=== PATIENT | female | born 1985 ===

== ENCOUNTER 2016-11-02 19:47 | Emergency (ER) | payer SELFPAY ==
[2016-11-02 20:06] VITALS: BP 154/61; PULSE 78; RESP 16; TEMP 98.1; O2SAT 100
--- NOTE | 2016-11-02 21:03 | ED PDOC ---
HPI: General Adult Time Seen by Provider: 11/02/16 19:48 Chief Complaint (Nursing): Eye Problem Chief Complaint (Provider): Eye Problem History Per: Patient History/Exam Limitations: no limitations Onset/Duration Of Symptoms: Hrs Current Symptoms Are (Timing): Still Present Additional Complaint(s): 31 y/o female presents to the emergency department with a complaint of swelling to the left lower lid of the eye since last week. Associated with rashes located on the left side of the face, right arm and elbow that began after eating seafood earlier today. Denies any further medical complaints. Past Medical History Reviewed: Historical Data, Nursing Documentation, Vital Signs Vital Signs: Last Vital Signs Temp 98.1 F 11/02/16 20:03 Pulse 78 11/02/16 20:03 Resp 16 11/02/16 20:03 BP 154/61 H 11/02/16 20:03 Pulse Ox 100 11/02/16 21:11 - Medical History PMH: No Chronic Diseases - Surgical History Surgical History: No Surg Hx - Family History Family History: States: Unknown Family Hx - Home Medications Home Medications: Ambulatory Orders Medication Instructions Recorded Naproxen [Naprosyn] 500 mg PO Q12H #20 tab 11/14/15 Albuterol HFA [Ventolin HFA 90 2 puff IH Q4 PRN #1 unit 06/28/16 mcg/actuation (8 g)] Ibuprofen [Motrin] 600 mg PO TID PRN #30 tab 06/28/16 Oseltamivir Phosphate [Tamiflu] 75 mg PO BID #9 capsule 06/28/16 Promethazine HCl/Codeine 5 ml PO TID PRN #50 syrup 06/28/16 [Prometh-Codein 6.25-10 mg/5 ml] Polymyxin/Trimethoprim Sulfate 1 drop XX Q6H 10 Days 11/02/16 [Polytrim Ophth Soln] - Allergies Allergies/Adverse Reactions: Allergies Allergy/AdvReac Type Severity Reaction Status Date / Time No Known Allergies Allergy Verified 11/14/15 10:33 Review of Systems ROS Statement: Except As Marked, All Systems Reviewed And Found Negative Eyes: Positive for: Pain (Left with swelling of the lower lid) Skin: Positive for: Rash Physical Exam - Reviewed Nursing Documentation Reviewed: Yes Vital Signs Reviewed: Yes - Physical Exam Appears: Positive for: Non-toxic, No Acute Distress Head Exam: Positive for: ATRAUMATIC, NORMOCEPHALIC Skin: Positive for: Warm, Dry, Rash (Erythematous papules consistent with insect bites on the left cheek, right hand, and elbow. ) Eye Exam: Positive for: EOMI, PERRL, Other (Small amount of white discharge to the left lower eyelid with stye. ). Negative for: Normal appearance (No corneal abrasion) Neurologic/Psych: Positive for: Alert, Oriented - ECG O2 Sat by Pulse Oximetry: 100 (RA) Pulse Ox Interpretation: Normal Medical Decision Making Medical Decision Making: Time: 19:48 Initial Impression: Left eye pain Initial Plan: --Benadryl 50 mg PO --Revaluation Time: 21:00 --Patient advised to apply warm compresses for healing of the stye located on the left eye. Upon provider reevaluation patient is medically stable, and requires no further treatment in the ED at this time. Patient will be discharged home with Rx for Polytrim Ophth Soln . Counseling was provided and all questions were answered regarding diagnosis and need for follow up with PMD. There is agreement to discharge plan. Return if symptoms persist or worsen. Clinical Impression: Conjunctivitis Scribe Attestation: Documented by Karolina Davis, acting as a scribe for Rosaline Brewster PA-C. Provider Scribe Attestation: All medical record entries made by the Scribe were at my direction and personally dictated by me. I have reviewed the chart and agree that the record accurately reflects my personal performance of the history, physical exam, medical decision making, and the department course for this patient. I have also personally directed, reviewed, and agree with the discharge instructions and disposition. Disposition - Clinical Impression Clinical Impression: Conjunctivitis - Patient ED Disposition Is Patient to be Admitted: No Counseled Patient/Family Regarding: Diagnosis, Rx Given - Disposition Disposition: Routine/Home Disposition Time: 21:00 Condition: STABLE Prescriptions: Polymyxin/Trimethoprim Sulfate [Polytrim Ophth Soln] 1 drop XX Q6H 10 Days Instructions: Conjunctivitis (ED)
== END 2016-11-02 21:40 | disposition home or self-care (01) ==
LOC: H.ER 19:47
DX: H10.9 Unspecified conjunctivitis (principal)

== ENCOUNTER 2017-03-04 19:27 | Emergency (ER) | payer OTHER ==
[2017-03-04 19:58] VITALS: BP 126/77; PULSE 87; RESP 16; TEMP 98.7; O2SAT 100
--- NOTE | 2017-03-04 20:28 | ED PDOC ---
HPI: Female Pain Time Seen by Provider: 03/04/17 20:00 Chief Complaint (Nursing): Abdominal Pain Chief Complaint (Provider): Abdominal Pain History Per: Patient History/Exam Limitations: no limitations Onset/Duration Of Symptoms: Days (x1) Current Symptoms Are (Timing): Still Present Additional Complaint(s): Michelle Polk is a 32 year old female who presents to the emergency department with a complaint of dysuria associated with suprapubic pain radiating intermittently to bilateral flank, hematuria and chills ongoing for 1 day. Denied any fever or vomiting. PMD: none provided Past Medical History Reviewed: Historical Data, Nursing Documentation, Vital Signs Vital Signs: Last Vital Signs Temp 98.7 F 03/04/17 19:54 Pulse 87 03/04/17 19:54 Resp 16 03/04/17 19:54 BP 126/77 03/04/17 19:54 Pulse Ox 100 03/04/17 19:54 - Family History Family History: States: Unknown Family Hx - Home Medications Home Medications: Ambulatory Orders Medication Instructions Recorded Naproxen [Naprosyn] 500 mg PO Q12H #20 tab 11/14/15 Albuterol HFA [Ventolin HFA 90 2 puff IH Q4 PRN #1 unit 06/28/16 mcg/actuation (8 g)] Ibuprofen [Motrin] 600 mg PO TID PRN #30 tab 06/28/16 Oseltamivir Phosphate [Tamiflu] 75 mg PO BID #9 capsule 06/28/16 Promethazine HCl/Codeine 5 ml PO TID PRN #50 syrup 06/28/16 [Prometh-Codein 6.25-10 mg/5 ml] Polymyxin/Trimethoprim Sulfate 1 drop XX Q6H 10 Days bottle 11/02/16 [Polytrim Ophth Soln] Ciprofloxacin [Cipro] 500 mg PO BID 7 Days tab 03/04/17 Phenazopyridine [Pyridium] 200 mg PO TID 2 Days tab 03/04/17 - Allergies Allergies/Adverse Reactions: Allergies Allergy/AdvReac Type Severity Reaction Status Date / Time seafood Allergy RASH Uncoded 03/04/17 19:54 Review of Systems ROS Statement: Except As Marked, All Systems Reviewed And Found Negative Constitutional: Positive for: Chills. Negative for: Fever Gastrointestinal: Positive for: Abdominal Pain (suprapubic). Negative for: Vomiting Genitourinary Female: Positive for: Dysuria, Hematuria Musculoskeletal: Positive for: Back Pain (bilateral flank intermittently) Physical Exam - Reviewed Nursing Documentation Reviewed: Yes Vital Signs Reviewed: Yes - Physical Exam Appears: Positive for: Well, Non-toxic, No Acute Distress Head Exam: Positive for: ATRAUMATIC, NORMAL INSPECTION, NORMOCEPHALIC Skin: Positive for: Normal Color Eye Exam: Positive for: Normal appearance ENT: Positive for: Normal ENT Inspection Neck: Positive for: Normal Cardiovascular/Chest: Positive for: Regular Rate, Rhythm. Negative for: Chest Non Tender Respiratory: Positive for: Normal Breath Sounds, Accessory Muscle Use. Negative for: Decreased Breath Sounds, Respiratory Distress Gastrointestinal/Abdominal: Positive for: Soft, Tenderness (suprapubic). Negative for: Normal Exam, Mass Back: Positive for: Normal Inspection. Negative for: L CVA Tenderness, R CVA Tenderness, Vertebral Tenderness Extremity: Positive for: Normal ROM. Negative for: Tenderness, Pedal Edema, Deformity Neurologic/Psych: Positive for: Alert, Oriented - ECG O2 Sat by Pulse Oximetry: 100 (RA) Pulse Ox Interpretation: Normal Medical Decision Making Medical Decision Making: Initial Impression: UTI Initial Plan: * Urine * Urine dpistick * Toradol 30mg IM * Urine culture * Urinalysis Scribe Attestation: Documented by Nabila Concepcion, acting as a scribe for Naveed Dash MD. Provider Scribe Attestation: All medical record entries made by the Scribe were at my direction and personally dictated by me. I have reviewed the chart and agree that the record accurately reflects my personal performance of the history, physical exam, medical decision making, and the department course for this patient. I have also personally directed, reviewed, and agree with the discharge instructions and disposition. Disposition - Clinical Impression Clinical Impression: UTI (urinary tract infection) - Disposition Referrals: [facility] [Outside] Disposition Time: 20:30 Condition: STABLE Prescriptions: Ciprofloxacin [Cipro] 500 mg PO BID 7 Days tab Phenazopyridine [Pyridium] 200 mg PO TID 2 Days tab Instructions: Urinary Tract Infection in Women (DC) Forms: [facility] (Dominican) Print Language: KOREAN
[2017-03-04 21:05] LABS: RBC URINE 458 /hpf (0-3); URINE BACTERIA OCC (<OCC); URINE BILIRUBIN NEGATIVE (NEGATIVE); URINE BLOOD LARGE (NEGATIVE); URINE COLOR YELLOW (YELLOW); URINE GLUCOSE (UA) NEG (Normal); URINE KETONE NEGATIVE (NEGATIVE); URINE LEUKOCYTE ESTERASE LARGE Leu/uL (Negative); URINE PROTEIN 100 mg/dL (NEGATIVE); URINE UROBILINOGEN 0.2-1.0 mg/dL (0.2-1.0); WBC URINE 150 /hpf (0-5)
== END 2017-03-04 21:24 | disposition home or self-care (01) ==
LOC: H.ER 19:27
DX: N39.0 Urinary tract infection, site not specified (principal)
CPT/HCPCS: 81003; 87086; 96372; 99282; J1885

== ENCOUNTER 2018-01-06 15:12 | Emergency (ER) | payer OTHER ==
[2018-01-06 15:22] VITALS: BP 113/75; PULSE 88; RESP 16; TEMP 98.6; O2SAT 99
--- NOTE | 2018-01-06 16:21 | ED PDOC ---
HPI: General Adult Time Seen by Provider: 01/06/18 15:34 Chief Complaint (Nursing): Abdominal Pain Chief Complaint (Provider): Mass History Per: Patient History/Exam Limitations: no limitations Onset/Duration Of Symptoms: Other (x2 years, worse since x few months) Current Symptoms Are (Timing): Still Present Additional Complaint(s): 32 year old female presents to the ED for evaluation of a mass over her left rib cage. Patient reports she initially noticed it two years ago, but since losing weight over the last few months, it was become more prominent. Otherwise , she denies redness, drainage from the site, and pain to the area. PMD: none provided Past Medical History Reviewed: Historical Data, Nursing Documentation, Vital Signs Vital Signs: Last Vital Signs Temp 98.6 F 01/06/18 15:18 Pulse 88 01/06/18 15:18 Resp 16 01/06/18 15:18 BP 113/75 01/06/18 15:18 Pulse Ox 99 01/06/18 16:24 - Medical History PMH: No Chronic Diseases - Surgical History Surgical History: No Surg Hx - Family History Family History: States: Unknown Family Hx - Social History Current smoker - smoking cessation education provided: No Alcohol: None Drugs: Denies - Home Medications Home Medications: Ambulatory Orders Medication Instructions Recorded Naproxen [Naprosyn] 500 mg PO Q12H #20 tab 11/14/15 Albuterol HFA [Ventolin HFA 90 2 puff IH Q4 PRN #1 unit 06/28/16 mcg/actuation (8 g)] Ibuprofen [Motrin] 600 mg PO TID PRN #30 tab 06/28/16 Oseltamivir Phosphate [Tamiflu] 75 mg PO BID #9 capsule 06/28/16 Promethazine HCl/Codeine 5 ml PO TID PRN #50 syrup 06/28/16 [Prometh-Codein 6.25-10 mg/5 ml] Polymyxin/Trimethoprim Sulfate 1 drop XX Q6H 10 Days bottle 11/02/16 [Polytrim Ophth Soln] Ciprofloxacin [Cipro] 500 mg PO BID 7 Days tab 03/04/17 Phenazopyridine [Pyridium] 200 mg PO TID 2 Days tab 03/04/17 - Allergies Allergies/Adverse Reactions: Allergies Allergy/AdvReac Type Severity Reaction Status Date / Time seafood Allergy RASH Uncoded 03/04/17 19:54 Review of Systems ROS Statement: Except As Marked, All Systems Reviewed And Found Negative Gastrointestinal: Positive for: Other (mass to left rib cage, no redness drainage or pain) Physical Exam - Reviewed Nursing Documentation Reviewed: Yes Vital Signs Reviewed: Yes - Physical Exam Appears: Positive for: No Acute Distress Head Exam: Positive for: ATRAUMATIC, NORMOCEPHALIC Skin: Positive for: Normal Color, Warm, Dry Eye Exam: Positive for: Normal appearance ENT: Positive for: Normal ENT Inspection Neck: Positive for: Normal, Painless ROM, Supple Cardiovascular/Chest: Positive for: Regular Rate, Rhythm Respiratory: Positive for: Normal Breath Sounds. Negative for: Accessory Muscle Use, Respiratory Distress Gastrointestinal/Abdominal: Positive for: Normal Exam, Soft. Negative for: Tenderness (over left lateral ribs), Mass, Other (edema) Back: Positive for: Normal Inspection. Negative for: L CVA Tenderness Extremity: Positive for: Normal ROM Neurologic/Psych: Positive for: Alert, Oriented (x3). Negative for: Motor/ Sensory Deficits - ECG O2 Sat by Pulse Oximetry: 99 (RA) Pulse Ox Interpretation: Normal Medical Decision Making Medical Decision Making: Time: 1559 Initial Impression: lipoma Initial Plan: --XR left ribs XR: NAd, as read by NORBERT Scribe Attestation: Documented by Vianey Marti, acting as a scribe for Cordelia Mckinney PA-C. Provider Scribe Attestation: All medical record entries made by the Scribe were at my direction and personally dictated by me. I have reviewed the chart and agree that the record accurately reflects my personal performance of the history, physical exam, medical decision making, and the department course for this patient. I have also personally directed, reviewed, and agree with the discharge instructions and disposition. Disposition - Clinical Impression Clinical Impression: Lipoma - Patient ED Disposition Is Patient to be Admitted: No - Disposition Referrals: Maximiliano Salmeron MD [Medical Doctor] - Disposition: Routine/Home Disposition Time: 20:23 Condition: STABLE Instructions: Lipoma Forms: [facility] (Ukrainian), [facility] ED School/Work Excuse
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
== END 2018-01-06 18:22 | disposition home or self-care (01) ==
LOC: H.ER 15:12
DX: D17.79 Benign lipomatous neoplasm of other sites (principal)

== ENCOUNTER 2018-04-18 03:39 | Emergency (ER) | payer OTHER ==
[2018-04-18 04:00] VITALS: RESP 18; O2SAT 98
[2018-04-18] MEDS ORDERED: Tdap Vaccine 0.5 ml Vial (10-64 yrs) IM ONE (04:08)
[2018-04-18] MEDS ORDERED: Amoxicillin-Clav 875-125 mg Tab PO ONE ×2 (04:33→04:34)
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
[2018-04-18] MEDS ORDERED: Bacitracin 500 Units/gm Oint Foilpak UD TOP ONE (05:02)
[2018-04-18 05:24] VITALS: BP 125/73; PULSE 89; TEMP 98.5
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
== END 2018-04-18 05:20 | disposition home or self-care (01) ==
LOC: H.ER 03:39
DX: S61.001A Unspecified open wound of right thumb without damage to nail, initial encounter (principal); S05.11XA Contusion of eyeball and orbital tissues, right eye, initial encounter; Y04.1XXA Assault by human bite, initial encounter; Y04.0XXA Assault by unarmed brawl or fight, initial encounter; Y92.89 Other specified places as the place of occurrence of the external cause

== ENCOUNTER 2018-04-19 11:25 | Emergency (ER) | payer OTHER ==
[2018-04-19 11:30] VITALS: BMI 25.4
[2018-04-19 11:35] VITALS: BP 128/89; PULSE 83; RESP 18; TEMP 97.8; O2SAT 100
[2018-04-19] MEDS ORDERED: Amoxicillin-Clav 875-125 mg Tab PO STA (12:55)
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
[2018-04-19] MEDS ORDERED: Naproxen 500 MG TAB PO ONE (13:38)
[2018-04-19] MEDS ORDERED: Amoxicillin-Clav 875-125 mg Tab PO ONE (13:38)
[2018-04-19] MEDS ORDERED: Naproxen 500 MG TAB PO STA (14:06)
[2018-04-19] MEDS ORDERED: Naproxen 500 MG TAB PO SCH (21:00)
== END 2018-04-19 15:01 | disposition home or self-care (01) ==
LOC: H.ER 11:25
DX: L08.9 Local infection of the skin and subcutaneous tissue, unspecified (principal)